=== PATIENT | female | born 1965 | race Native Hawaiian/Other Pacific Islander ===

== ENCOUNTER 2016-11-06 10:18 | Outpatient (CLI) | payer OTHER | END 2016-11-06 19:44 | disposition home or self-care (01) | LOC: MAMMO 10:18 | DX: Z12.31 Encounter for screening mammogram for malignant neoplasm of breast (principal) | CPT/HCPCS: G0202-TC ==

== ENCOUNTER 2017-11-08 08:19 | Outpatient (CLI) | payer OTHER | END 2017-11-08 19:22 | disposition home or self-care (01) | LOC: MAMMO 08:19 | DX: Z12.31 Encounter for screening mammogram for malignant neoplasm of breast (principal) ==

== ENCOUNTER 2017-11-11 12:31 | Outpatient (CLI) | payer OTHER | END 2017-11-11 20:27 | disposition home or self-care (01) | LOC: RAD 12:31 | DX: R07.81 Pleurodynia (principal); M54.2 Cervicalgia; M54.6 Pain in thoracic spine; M54.5 Low back pain ==

== ENCOUNTER 2018-03-12 08:27 | Outpatient (CLI) | payer OTHER | END 2018-03-12 21:42 | disposition home or self-care (01) | LOC: US 08:27 | DX: R60.0 Localized edema (principal); R26.89 Other abnormalities of gait and mobility ==

== ENCOUNTER 2018-09-15 10:00 | Outpatient (CLI) | payer OTHER | END 2018-09-15 22:48 | disposition home or self-care (01) | LOC: RESP 10:00 | DX: R06.02 Shortness of breath (principal) ==

== ENCOUNTER 2018-09-18 11:33 | Outpatient (CLI) | payer OTHER | END 2018-09-18 23:25 | disposition home or self-care (01) | LOC: RESP 11:33 | DX: R06.02 Shortness of breath (principal) | CPT/HCPCS: 36600; 82805 ==

== ENCOUNTER 2018-10-07 20:09 | Emergency (ER) | payer OTHER ==
[~2018-10-07] VITALS: Ht 157.5 cm; Wt 51.7 kg
[2018-10-07 21:08] LABS: PLATELET COUNT 159 K/uL (152-353)
[2018-10-07 21:13] LABS: POTASSIUM 3.4 mmol/L (3.6-5.2)
[2018-10-07 23:28] VITALS: BP 145/94; TEMP 97.5
== END 2018-10-07 23:30 | disposition home or self-care (01) ==
LOC: ED 20:09
PROVIDERS: Internal Medicine
DX: R41.0 Disorientation, unspecified (principal); R40.0 Somnolence; K74.69 Other cirrhosis of liver
CPT/HCPCS: 36415; 80053; 81000; 82140; 85027; 99283

== ENCOUNTER 2018-10-27 18:14 | Outpatient (CLI) | payer OTHER ==
[2018-10-27 18:22] LABS: PLATELET COUNT 253 K/uL (152-353)
[2018-10-27 18:37] LABS: POTASSIUM 3.8 mmol/L (3.6-5.2)
== END 2018-10-27 22:15 | disposition home or self-care (01) ==
LOC: LAB 18:14
PROVIDERS: Internal Medicine
DX: K70.30 Alcoholic cirrhosis of liver without ascites (principal); J44.9 Chronic obstructive pulmonary disease, unspecified; R41.0 Disorientation, unspecified; R60.9 Edema, unspecified; Z23 Encounter for immunization; I10 Essential (primary) hypertension; K72.90 Hepatic failure, unspecified without coma
CPT/HCPCS: 80053; 85027

== ENCOUNTER 2018-11-12 09:39 | Outpatient (CLI) | payer OTHER | END 2018-11-12 19:14 | disposition home or self-care (01) | LOC: MAMMO 09:39 | DX: Z12.31 Encounter for screening mammogram for malignant neoplasm of breast (principal) ==

== ENCOUNTER 2019-02-20 08:51 | Outpatient (CLI) | payer OTHER | END 2019-02-20 19:34 | disposition home or self-care (01) | LOC: US 08:51 | DX: M79.605 Pain in left leg (principal); L03.116 Cellulitis of left lower limb; Z86.718 Personal history of other venous thrombosis and embolism ==

== ENCOUNTER 2019-06-05 10:39 | Outpatient (CLI) | payer OTHER ==
[2019-06-05 11:16] LABS: PLATELET COUNT 145 K/uL (152-353)
== END 2019-06-05 21:48 | disposition home or self-care (01) ==
LOC: LABW 10:39
PROVIDERS: Internal Medicine Gastroenterology
DX: K59.1 Functional diarrhea (principal); B18.2 Chronic viral hepatitis C
CPT/HCPCS: 36415; 80076; 82272; 82705; 83630; 85027; 87015; 87045; 87324; 87328; 87329; 87449; 87522; 87899

== ENCOUNTER 2019-06-26 09:43 | Outpatient (CLI) | payer OTHER | END 2019-06-26 19:20 | disposition home or self-care (01) | LOC: LABW 09:43 | DX: A04.72 Enterocolitis due to Clostridium difficile, not specified as recurrent (principal) | CPT/HCPCS: 87324; 87449 ==

== ENCOUNTER 2019-10-22 11:27 | Outpatient (CLI) | payer OTHER | END 2019-10-22 20:20 | disposition home or self-care (01) | LOC: CT 11:27 | DX: R91.1 Solitary pulmonary nodule (principal) ==

== ENCOUNTER 2019-11-23 11:25 | Outpatient (CLI) | payer OTHER | END 2019-11-23 21:36 | disposition home or self-care (01) | LOC: MAMMO 11:25 | DX: Z12.31 Encounter for screening mammogram for malignant neoplasm of breast (principal) ==

== ENCOUNTER 2020-04-22 11:59 | Outpatient (CLI) | payer OTHER | END 2020-04-22 23:06 | disposition home or self-care (01) | LOC: RAD 11:59 | PROVIDERS: ATTEND Nurse Practitioner Family | DX: J43.2 Centrilobular emphysema (principal) ==

== ENCOUNTER 2020-06-28 10:31 | Outpatient (CLI) | payer OTHER | END 2020-06-28 20:28 | disposition home or self-care (01) | LOC: CT 10:31 | DX: R91.1 Solitary pulmonary nodule (principal) ==

== ENCOUNTER 2020-11-03 17:28 | Outpatient (CLI) | payer OTHER | END 2020-11-03 23:51 | disposition home or self-care (01) | LOC: CT 17:28 | PROVIDERS: ATTEND Internal Medicine Sleep Medicine | DX: Z92.29 Personal history of other drug therapy (principal); R91.1 Solitary pulmonary nodule ==

== ENCOUNTER 2021-05-11 10:43 | Outpatient (CLI) | payer OTHER | END 2021-05-11 20:33 | disposition home or self-care (01) | LOC: MRI 10:43 | PROVIDERS: ATTEND Internal Medicine | DX: R41.0 Disorientation, unspecified (principal); R42 Dizziness and giddiness; R51.9 Headache, unspecified; I50.9 Heart failure, unspecified; K72.90 Hepatic failure, unspecified without coma; F32.9 Major depressive disorder, single episode, unspecified ==

== ENCOUNTER 2021-12-28 14:00 | Outpatient (CLI) | payer OTHER | END 2021-12-28 20:02 | disposition home or self-care (01) | LOC: MAMMO 14:00 | PROVIDERS: ATTEND Specialist | DX: Z12.31 Encounter for screening mammogram for malignant neoplasm of breast (principal) ==

== ENCOUNTER 2022-01-10 14:52 | Outpatient (CLI) | payer OTHER ==
[2022-01-11] MEDS ORDERED: LINZESS145 MCG PO (12:26)
[2022-01-11] MEDS ORDERED: PANTOPRAZOLE SO40 M1 PO (12:27)
[2022-01-11] MEDS ORDERED: EUTHYROX50 MCG PO (12:28)
[2022-01-11] MEDS ORDERED: SUMATRIPTAN25 MG PO (12:29)
[2022-01-11] MEDS ORDERED: BUSPIRONE HYDRO15 MG PO (12:31)
[2022-01-11] MEDS ORDERED: D3-5050000 UNIT PO (12:44)
[2022-01-11] MEDS ORDERED: DICLOFENAC SODIUM1 % TOP (12:46)
[2022-01-11] MEDS ORDERED: DULOXETINE HYDR30 MG PO (12:47)
[2022-01-11] MEDS ORDERED: DULOXETINE HYDR60 MG PO (12:48)
[2022-01-11] MEDS ORDERED: FEROSUL325 MG PO (12:48)
[2022-01-11] MEDS ORDERED: FLUTICASON50 MCG/AC1 INH (12:49)
[2022-01-11] MEDS ORDERED: FUROSEMIDE20 MG PO (12:50)
[2022-01-11] MEDS ORDERED: HYDROXYCHLOR200 MG PO (12:50)
[2022-01-11] MEDS ORDERED: LORATADINE10 MG PO (12:51)
[2022-01-11] MEDS ORDERED: POT CHLORIDE10 ME1 PO (12:52)
[2022-01-11] MEDS ORDERED: PRAMIPEXOLE0.25 MG PO (12:52)
[2022-01-11] MEDS ORDERED: THEOPHYLLINE400 MG PO (12:54)
[2022-01-11] MEDS ORDERED: TOLTERODINE TART4 MG PO (12:54)
[2022-01-11] MEDS ORDERED: XARELTO15 MG PO (12:55)
[2022-01-11] MEDS ORDERED: CARV6.25 PO (12:56)
[2022-01-11] MEDS ORDERED: KP FOLIC ACID1 MG PO (12:57)
[2022-01-11] MEDS ORDERED: UREA 40% TOP (12:58)
[2022-01-11] MEDS ORDERED: ANORO ELLIPTA 61 AER INH (12:59)
[2022-01-11] MEDS ORDERED: CHLO0.12 PO (12:59)
[2022-01-11] MEDS ORDERED: CYAN10009 IM (13:00)
[2022-01-11] MEDS ORDERED: PROAIR HFA108 MCG/AC INH (13:01)
[2022-01-11] MEDS ORDERED: METAXALONE800 MG PO (13:02)
[2022-01-11] MEDS ORDERED: TRAZODONE HYDR100 MG PO (13:03)
[2022-01-11] MEDS ORDERED: PERCOCET1 TA1 PO (13:04)
[2022-01-12] MEDS ORDERED: CEFD300C2 PO (09:37)
[2022-01-12] MEDS ORDERED: METHYLPRED4 MG PO (09:38)
== END 2022-01-10 19:13 | disposition home or self-care (01) ==
LOC: RAD 14:52
PROVIDERS: ATTEND Internal Medicine
DX: M85.871 Other specified disorders of bone density and structure, right ankle and foot (principal); M85.872 Other specified disorders of bone density and structure, left ankle and foot; R06.02 Shortness of breath

== ENCOUNTER 2022-06-20 11:32 | Outpatient (CLI) | payer OTHER ==
[~2022-06-20 11:32] MED LIST: ANORO ELLIPTA 61 AER INH; BUSPIRONE HYDRO15 MG PO; CARV6.25 PO; CEFD300C2 PO; CHLO0.12 PO; CYAN10009 IM; D3-5050000 UNIT PO; DICLOFENAC SODIUM1 % TOP; DULOXETINE HYDR30 MG PO; DULOXETINE HYDR60 MG PO; EUTHYROX50 MCG PO; FEROSUL325 MG PO; FLUTICASON50 MCG/AC1 INH; FUROSEMIDE20 MG PO; HYDROXYCHLOR200 MG PO; KP FOLIC ACID1 MG PO; LINZESS145 MCG PO; LORATADINE10 MG PO; METAXALONE800 MG PO; METHYLPRED4 MG PO; PANTOPRAZOLE SO40 M1 PO; PERCOCET1 TA1 PO; POT CHLORIDE10 ME1 PO; PRAMIPEXOLE0.25 MG PO; PROAIR HFA108 MCG/AC INH; SUMATRIPTAN25 MG PO; THEOPHYLLINE400 MG PO; TOLTERODINE TART4 MG PO; TRAZODONE HYDR100 MG PO; UREA 40% TOP; XARELTO15 MG PO
== END 2022-06-20 18:50 | disposition home or self-care (01) ==
LOC: RESP 11:32
PROVIDERS: ATTEND Physician Assistant
DX: I42.6 Alcoholic cardiomyopathy (principal)

== ENCOUNTER 2022-06-28 15:51 | Emergency (ER) | payer OTHER ==
[~2022-06-28] VITALS: Ht 157.5 cm; Wt 52.2 kg
[2022-06-28 15:59] VITALS: TEMP 98
[2022-06-28 17:52] VITALS: BP 121/71
== END 2022-06-28 17:52 | disposition home or self-care (01) ==
LOC: ED 15:51
DX: R51.9 Headache, unspecified (principal)
CPT/HCPCS: 99283

== ENCOUNTER 2022-07-03 22:26 | Emergency (ER) | payer OTHER ==
[~2022-07-03] VITALS: Ht 157.5 cm; Wt 52.2 kg
[2022-07-03 22:26] VITALS: TEMP 98.4
[2022-07-03 23:59] LABS: POTASSIUM 3.6 mmol/L (3.6-5.2)
[2022-07-04 00:12] LABS: PARTIAL THROMBOPLASTIN TIME 26.7 SECONDS (24.5-33.6)
[2022-07-04 01:16] LABS: PLATELET COUNT 230 K/uL (152-353)
[2022-07-04 05:00] VITALS: BP 137/80
== END 2022-07-04 05:00 | disposition still patient (30) ==
LOC: ED 22:26
PROVIDERS: Emergency Medicine
DX: R41.82 Altered mental status, unspecified (principal); Z53.29 Procedure and treatment not carried out because of patient's decision for other reasons; Z20.822 Contact with and (suspected) exposure to COVID-19; W18.39XA Other fall on same level, initial encounter; Y92.89 Other specified places as the place of occurrence of the external cause
CPT/HCPCS: 36415; 36600; 80053; 80307; 81002; 82805; 84484; 85027; 85610; 85730; 87635; 93005; 99284; U0003

== ENCOUNTER 2022-09-09 17:40 | Emergency (ER) | payer OTHER ==
[~2022-09-09] VITALS: Ht 157.5 cm; Wt 41.3 kg
[2022-09-09 17:40] VITALS: BP 125/85; TEMP 98
== END 2022-09-09 20:00 | disposition home or self-care (01) ==
LOC: ED 17:40
DX: S81.822A Laceration with foreign body, left lower leg, initial encounter (principal); W22.8XXA Striking against or struck by other objects, initial encounter; Y92.89 Other specified places as the place of occurrence of the external cause
CPT/HCPCS: 90715; 99283

== ENCOUNTER 2022-10-02 14:50 | Observation (INO) | payer OTHER ==
[~2022-10-02] VITALS: Ht 157.5 cm; Wt 45.4 kg
[2022-10-02 15:00] VITALS: BP 107/79
[2022-10-02 17:27] LABS: PLATELET COUNT 203 K/uL (152-353)
[2022-10-02 17:35] LABS: POTASSIUM 3.5 mmol/L (3.6-5.2)
[2022-10-02] MEDS ORDERED: ONDANSETRON4 M2 PO (19:08)
[2022-10-02] MEDS ORDERED: FAMOTIDINE MAXI20 MG PO (19:09)
[2022-10-02] MEDS ORDERED: ZYRTEC ALLGY10 MG PO (19:13)
[2022-10-02] MEDS ORDERED: MONTELUKAST SOD10 MG PO (19:17)
[2022-10-02] MEDS ORDERED: DIGITEK0.125 MG PO (19:18)
[2022-10-02] MEDS ORDERED: SPIRONOLACT25 MG PO (19:21)
[2022-10-02] MEDS ORDERED: METO-837 PO (19:25)
[2022-10-02] MEDS ORDERED: LISI5TAB10 PO (19:29)
[2022-10-02 21:59] VITALS: BP 118/83; TEMP 98.2; Ht 157.5 cm; Wt 45.4 kg
[2022-10-03] VITALS (7 sets, daily range): BP systolic 92–109; BP diastolic 52–70; TEMP 97.5–98.6
[2022-10-03 04:55] LABS: PLATELET COUNT 150 K/uL (152-353)
[2022-10-03 05:07] LABS: POTASSIUM 2.9 mmol/L (3.6-5.2)
[2022-10-04 03:33] VITALS: BP 95/56; TEMP 97.8
[2022-10-04 04:06] LABS: PLATELET COUNT 144 K/uL (152-353)
[2022-10-04 04:27] LABS: POTASSIUM 3.8 mmol/L (3.6-5.2)
[2022-10-04 08:00] VITALS: BP 105/59; TEMP 97.9
[2022-10-04 12:00] VITALS: BP 122/75; TEMP 97.8
[2022-10-04] MEDS ORDERED: 904272561 PO (15:48)
== END 2022-10-04 15:22 | disposition home or self-care (01) ==
LOC: ED 14:50 → MED/SURG 16:00
PROVIDERS: Emergency Medicine; ADMIT Internal Medicine; ATTEND Internal Medicine
DX: L03.116 Cellulitis of left lower limb (principal); I73.89 Other specified peripheral vascular diseases; Z11.52 Encounter for screening for COVID-19; I25.10 Atherosclerotic heart disease of native coronary artery without angina pectoris; G89.29 Other chronic pain
CPT/HCPCS: 36415; 80053; 80202; 81002; 85027; 85652; 86140; 87040; 87635; 94760; 96361; 96365; 96367; 96374; 96375; 99220; 99284; G0378; J2405; J3370; J7040; U0003

== ENCOUNTER 2022-10-10 11:37 | Outpatient (CLI) | payer OTHER ==
[~2022-10-10 11:37] MED LIST changes: +904272561 PO; +DIGITEK0.125 MG PO; +FAMOTIDINE MAXI20 MG PO; +LISI5TAB10 PO; +METO-837 PO; +MONTELUKAST SOD10 MG PO; +ONDANSETRON4 M2 PO; +SPIRONOLACT25 MG PO; +ZYRTEC ALLGY10 MG PO
== END 2022-10-10 19:17 | disposition home or self-care (01) ==
LOC: CT 11:37
PROVIDERS: ATTEND Internal Medicine Sleep Medicine
DX: R91.1 Solitary pulmonary nodule (principal)

== ENCOUNTER 2022-11-14 19:33 | Emergency (ER) | payer OTHER ==
[~2022-11-14] VITALS: Ht 157.5 cm; Wt 40.8 kg
[2022-11-14 19:45] VITALS: BP 127/72; TEMP 97.8
== END 2022-11-14 22:00 | disposition home or self-care (01) ==
LOC: ED 19:33
DX: S00.03XA Contusion of scalp, initial encounter (principal); S16.1XXA Strain of muscle, fascia and tendon at neck level, initial encounter; S29.012A Strain of muscle and tendon of back wall of thorax, initial encounter; S39.012A Strain of muscle, fascia and tendon of lower back, initial encounter; W18.39XA Other fall on same level, initial encounter; Z91.81 History of falling; Y92.89 Other specified places as the place of occurrence of the external cause
CPT/HCPCS: 99283

== ENCOUNTER 2023-02-11 10:56 | Outpatient (CLI) | payer OTHER ==
[2023-02-11 11:35] LABS: PLATELET COUNT 129 K/uL (152-353)
[2023-02-11 11:37] LABS: POTASSIUM 3.4 mmol/L (3.6-5.2)
== END 2023-02-11 19:00 | disposition home or self-care (01) ==
LOC: LABW 10:56
PROVIDERS: ATTEND Physician Assistant Medical
DX: R93.1 Abnormal findings on diagnostic imaging of heart and coronary circulation (principal)
CPT/HCPCS: 36415; 80048; 85027; 85610

== ENCOUNTER 2023-02-28 16:22 | Outpatient (CLI) | payer OTHER | END 2023-02-28 18:00 | disposition home or self-care (01) | LOC: RAD 16:22 | PROVIDERS: ATTEND Pain Medicine Interventional Pain Medicine | DX: M54.17 Radiculopathy, lumbosacral region (principal) ==

== ENCOUNTER 2023-06-17 08:57 | Outpatient (CLI) | payer OTHER | END 2023-06-17 19:04 | disposition home or self-care (01) | LOC: CT 08:57 | PROVIDERS: ATTEND Internal Medicine Sleep Medicine | DX: R91.1 Solitary pulmonary nodule (principal); R14.0 Abdominal distension (gaseous) ==

== ENCOUNTER 2023-06-19 10:41 | Outpatient (CLI) | payer OTHER ==
[2023-06-19 11:49] LABS: PLATELET COUNT 125 K/uL (152-353)
== END 2023-06-19 19:17 | disposition home or self-care (01) ==
LOC: US 10:41
PROVIDERS: ATTEND Internal Medicine Gastroenterology
DX: R14.0 Abdominal distension (gaseous) (principal)
CPT/HCPCS: 36415; 80053; 82140; 85027